=== PATIENT | male | born 1965 | race Caucasian/White ===

== ENCOUNTER 2016-12-31 09:36 | Emergency (ER) | payer SELFPAY ==
[~2016-12-31] VITALS: Ht 167.6 cm; Wt 88.5 kg
[~2016-12-31 09:36] MED LIST: BENADRYL25 MG PO; LISINOPRIL-HCT1 EACH PO; METOPROLOL SUC100 MG PO; NYQUIL D COLD295 ML PO; PERCOCET 5-3251 EACH PO; PIROXICAM20 MG PO; PROMETHAZINE-COD5 ML PO
[2016-12-31] MEDS ORDERED: NORCO 5-325 TA1 EACH PO (10:42)
== END 2016-12-31 10:55 | disposition home or self-care (01) ==
LOC: ED 09:36
DX: S20.212A Contusion of left front wall of thorax, initial encounter (principal); I10 Essential (primary) hypertension; F17.200 Nicotine dependence, unspecified, uncomplicated; Z87.442 Personal history of urinary calculi; Z88.1 Allergy status to other antibiotic agents; Z79.899 Other long term (current) drug therapy; W01.0XXA Fall on same level from slipping, tripping and stumbling without subsequent striking against object, initial encounter
CPT/HCPCS: 71101; 99283

== ENCOUNTER 2017-03-10 15:02 | Emergency (ER) | payer SELFPAY ==
[~2017-03-10] VITALS: Ht 167.6 cm; Wt 83.9 kg
[~2017-03-10 15:02] MED LIST changes: +NORCO 5-325 TA1 EACH PO
[2017-03-10] MEDS ORDERED: NORCO 5-325 TA1 EACH PO (16:59)
== END 2017-03-10 17:17 | disposition home or self-care (01) ==
LOC: ED 15:02
PROC: 0HQGXZZ Repair Left Hand Skin, External Approach (ICD-10-PCS; principal; 2017-03-10)
DX: S62.661A Nondisplaced fracture of distal phalanx of left index finger, initial encounter for closed fracture (principal); S61.311A Laceration without foreign body of left index finger with damage to nail, initial encounter; S60.122A Contusion of left index finger with damage to nail, initial encounter; I10 Essential (primary) hypertension; F17.200 Nicotine dependence, unspecified, uncomplicated; Z87.442 Personal history of urinary calculi; Z88.1 Allergy status to other antibiotic agents; Z88.8 Allergy status to other drugs, medicaments and biological substances; Z79.899 Other long term (current) drug therapy; W23.0XXA Caught, crushed, jammed, or pinched between moving objects, initial encounter
CPT/HCPCS: 12002; 73140; 99283

== ENCOUNTER 2017-03-26 16:05 | Emergency (ER) | payer SELFPAY ==
[~2017-03-26] VITALS: Ht 167.6 cm; Wt 83.9 kg
== END 2017-03-26 19:05 | disposition left against medical advice (07) ==
LOC: ED 16:05
DX: Z53.21 Procedure and treatment not carried out due to patient leaving prior to being seen by health care provider (principal)

== ENCOUNTER 2019-11-07 15:42 | Emergency (ER) | payer OTHER ==
[~2019-11-07] VITALS: Ht 167.6 cm; Wt 83.9 kg
--- OUTSIDE RECORDS SUMMARY | 2019-11-07 15:46 | XMS ---
PreManage Notification: [employer] Events No recent Security Events currently on file CRITERIA MET - Group Notification - [facility] CARE PROVIDERS There are no care providers on record at this time. Kristin has no Care Guidelines for this patient. EJacqueline VISIT COUNT (12 MO.) 1 [facility] 1 DON Alcazar TOTAL 2 NOTE: Visits indicate total known visits. ED/C VISIT TRACKING (12 MO.) 11/07/2019 15:43 [facility] [place] TYPE: Emergency COMPLAINT: - COLD SYMPTOMS 08/29/2019 13:20 [facility] TYPE: Emergency COMPLAINT: - ABD Pain/Brusing DIAGNOSES: - Rib Pain - Unspecified injury of abdomen, initial encounter - ABD Pain/Brusing - Other specified injuries of thorax, initial encounter INPATIENT VISIT TRACKING (12 MO.) No inpatient visits to display in this time frame [email or web address]
[2019-11-07] MEDS ORDERED: TESSALON PERLE100 MG PO (17:08)
[2019-11-07] MEDS ORDERED: ZITHROMAX250 MG PO (17:08)
== END 2019-11-07 17:18 | disposition home or self-care (01) ==
LOC: ED 15:42
DX: J20.9 Acute bronchitis, unspecified (principal); I10 Essential (primary) hypertension; F17.200 Nicotine dependence, unspecified, uncomplicated; Z88.8 Allergy status to other drugs, medicaments and biological substances; Z88.1 Allergy status to other antibiotic agents; Z79.899 Other long term (current) drug therapy
CPT/HCPCS: 71045; 71046; 99283-25